=== PATIENT | male | born 2000 | race Asian ===

== ENCOUNTER → 2020-10-19 | Outpatient (CLI) | payer SELFPAY ==
--- NOTE | 2020-10-19 10:51 | RAD ---
EXAM: Right ankle 3 views. HISTORY: Pain after injury. COMPARISON: None. FINDINGS: Three views of the right ankle are obtained. No fractures are identified. Alignment is normal. Joint spaces are maintained. IMPRESSION: 1. No fracture. Electronically signed by: Philip Nettles MD (10/19/2020 10:48 AM) [facility]
== END ==
LOC: DXRAD 09:19
PROVIDERS: ATTEND Physician Assistant
DX: M25.571 Pain in right ankle and joints of right foot (principal)
CPT/HCPCS: 73610